=== PATIENT | male | born 1995 | race Caucasian/White ===

== ENCOUNTER 2019-05-12 03:58 | Emergency (ER) | payer OTHER ==
--- NOTE | 2019-05-12 05:07 | REPVR ---
PROCEDURE INFORMATION: Exam: CT Head Without Contrast Exam date and time: 05/12/19 (4:32am) Age: 23 years old Clinical history: Injury or trauma. Fall. Initial encounter. Blunt trauma (contusions or hematomas). TECHNIQUE: Imaging protocol: Computed tomography of the head without contrast. Radiation optimization: All CT scans at this facility use at least one of these dose optimization techniques: automated exposure control; mA and/or kV adjustment per patient size (includes targeted exams where dose is matched to clinical indication); or iterative reconstruction. COMPARISON: No relevant prior studies available FINDINGS: Brain: Unremarkable. No acute hemorrhage. Unremarkable white matter. No mass effect. Ventricles: Normal. No ventriculomegaly. Bones/joints: Unremarkable. No acute fracture. Sinuses: Visualized sinuses are unremarkable. No air-fluid levels. Mastoid air cells: Visualized mastoid air cells are well aerated. Soft tissues: Left paranasal piercing. IMPRESSION: No acute intracranial pathology is appreciated. Electronically signed by: Flower Shay On 05/12/2019 05:07:13 AM
--- NOTE | 2019-05-12 05:09 | REPVR ---
PROCEDURE INFORMATION: Exam: CT Cervical Spine Without Contrast Exam date and time: 05/12/19 (4:32am) Age: 23 years old Clinical history: Injury or trauma. Fall Initial encounter. Blunt trauma. TECHNIQUE: Imaging protocol: Computed tomography images of the cervical spine without contrast. Radiation optimization: All CT scans at this facility use at least one of these dose optimization techniques: automated exposure control; mA and/or kV adjustment per patient size (includes targeted exams where dose is matched to clinical indication); or iterative reconstruction. COMPARISON: No relevant prior studies available FINDINGS: Vertebrae: No acute fracture. Normal alignment. Discs/Spinal canal/Neural foramina: No spinal stenosis. No neural foraminal narrowing. Soft tissues: Unremarkable. Lungs: Lung apices are normal. IMPRESSION: No acute findings. Electronically signed by: Flower Shay On 05/12/2019 05:09:48 AM
[2019-05-12 05:36] VITALS: BP 143/65
== END 2019-05-12 05:48 | disposition home or self-care (01) ==
LOC: M ED 03:58
DX: S01.81XA Laceration without foreign body of other part of head, initial encounter (principal); X58.XXXA Exposure to other specified factors, initial encounter; Y92.89 Other specified places as the place of occurrence of the external cause; F10.129 Alcohol abuse with intoxication, unspecified

== ENCOUNTER → 2021-02-03 | Outpatient (CLI) | payer OTHER ==
--- NOTE | 2021-02-03 08:48 | PFTRPT ---
Site: [facility], [address] [place], [address] ID: [id number] Name: SHADE ARAMBULA Visit Date: 02/03/2021 Second ID: [id number] Referring Doctor: Polo Espinoza Reviewing Doctor: Jordan Foley MD Supervisor [employer]: Sachin GRIFFITH RRT Age: 25 : 1995 Sex: Male Race: Height: 69.00 Inches Weight: 180.00 Lbs BSA: 1.98 Order IDs: [id number] Requested Test(s): <RESP-PFT.PFT B/A> Diagnosis: DYSPNEA of albuterol for post bronchodilator. The results of this test meet the ATS standards for acceptability and repeatability. Review Status: Not Reviewed Pre-Bronch Post-Bronch Pred Actual %Pred Actual %Chng SPIROMETRY FVC (L) 5.39 4.36 80 4.59 5 FEV1 (L) 4.46 3.01 67 3.48 15 FEV1/FVC (%) 83 69 83 76 9 FEF 25% (L/sec) 8.32 4.20 50 6.09 45 FEF 50% (L/sec) 5.79 2.37 40 3.57 50 FEF 75% (L/sec) 2.24 1.06 47 1.57 47 FEF 25-75% (L/sec) 4.66 2.07 44 3.06 47 FEF Max (L/sec) 9.96 6.55 65 8.47 29 FIVC (L) 4.38 3.91 -10 FIF 50% (L/sec) 5.64 4.57 80 2.93 -35 FIF Max (L/sec) 4.58 3.94 -13 MVV (L/min) 182 108 59 Expiratory Time (sec) 7.12 7.00 -1 Back Extrap Vol (L) 0.08 0.09 9 Time To FEFmax (sec) 0.082 0.066 -20 LUNG VOLUMES SVC (L) 5.23 4.41 84 IC (L) 3.48 3.24 93 ERV (L) 1.75 1.17 66 TGV (L) 3.20 3.39 105 RV (Pleth) (L) 1.45 2.22 153 TLC (Pleth) (L) 6.68 6.63 99 RV/TLC (Pleth) (%) 22 33 152 DIFFUSION DLCOunc (ml/min/mmHg) 36.15 29.44 81 DL/VA (ml/min/mmHg/L) 5.41 5.02 92 VA (L) 6.68 5.87 87 BHT (sec) 10.62 IVC (L) 4.27 TLC (SB) (L) 6.02 AIRWAYS RESISTANCE Raw (cmH2O/L/s) 1.45 2.09 143 Gaw (L/s/cmH2O) 1.03 0.49 47 sRaw (cmH2O*s) 4.76 7.88 165 sGaw (1/cmH2O*s) 0.20 0.13 63
== END ==
LOC: M CARPUL 08:00
PROVIDERS: ATTEND Physician Assistant
DX: R07.9 Chest pain, unspecified (principal)